=== PATIENT | male | born 1990 | race Two or more races ===

== ENCOUNTER 2024-04-02 03:46 | Emergency (ER) | payer OTHER ==
[~2024-04-02] VITALS: Ht 185.4 cm; Wt 109.8 kg
[2024-04-02 03:51] VITALS: BP 128/76; O2SAT 100
[2024-04-02] MEDS ORDERED: KETOROLAC TROMETHAMINE 60 MG VIAL IM STA (04:07)
[2024-04-02] MEDS ORDERED: NORFLEX100MG PO (05:20)
[2024-04-02] MEDS ORDERED: KETO10TA2 PO (05:20)
== END 2024-04-02 05:32 ==
LOC: ER 03:46
DX: S80.02XA Contusion of left knee, initial encounter (principal); S80.01XA Contusion of right knee, initial encounter; S60.211A Contusion of right wrist, initial encounter; S30.0XXA Contusion of lower back and pelvis, initial encounter; W18.39XA Other fall on same level, initial encounter; Y93.02 Activity, running; Y92.89 Other specified places as the place of occurrence of the external cause; Y99.8 Other external cause status